=== PATIENT | male | born 1955 | race Caucasian/White ===

== ENCOUNTER 2018-11-24 09:08 | Outpatient (CLI) | payer MEDICARE | END 2018-11-24 09:09 | disposition home or self-care (01) | LOC: C.PAT 09:08 | DX: L72.3 Sebaceous cyst (principal) ==

== ENCOUNTER 2018-11-30 07:53 | Day surgery (SDC) | payer MEDICARE ==
[2018-11-24 09:19] VITALS: BMI 34.5
[2018-11-30] MEDS ORDERED: ceFAZolin 1 gm in NS 2 GM/200 ML BAG IVPB ONE (08:58)
[2018-11-30] MEDS ORDERED: Bupivacaine HCl 0.25% PF (10 ml) Inj ONE (08:58)
[2018-11-30] MEDS ORDERED: Lidocaine/Epinephrine 1% 1:100000 10 ML IJ ONE (08:58)
[2018-11-30] MEDS ORDERED: Midazolam 2 MG/2 ML VIAL ONE ×2 (09:12→09:45)
[2018-11-30] MEDS ORDERED: Propofol 10 mg/ml Inj (20 ML) ONE (09:12)
[2018-11-30] MEDS ORDERED: HYDROmorphone 0.5 mg/0.5 ml ISec IVP PRN (09:43)
--- NOTE | 2018-11-30 10:26 | PCM.SURG1 ---
Surgeon's Initial Post Op Note - Surgeon's Notes Surgeon: Marko Amaya MD Alcohol And Drug Counselor: JACOB Carballo Type of Anesthesia: General Endo Pre-Operative Diagnosis: Infected sebaceous cyst of back 6x5 cm Operative Findings: Infected sebaceous cyst of back 6x5 cm. Infected skin and subcut tissue Post-Operative Diagnosis: Infected sebaceous cyst of back 6x5 cm. Infected skin and subcut tissue Operation Performed: Excision of sebaceous cyst of back 6x5 cm. Excision of redundant Infected skin and subcut tissue 6x2 cm. Layered closure of wound 6x5x3 cm, complex Specimen/Specimens Removed: Infected sebaceous cyst with redundant skin with subcut tissue Estimated Blood Loss: EBL {In ML}: 20 Blood Products Given: N/A Drains Used: No Drains Post-Op Condition: Good Date of Surgery/Procedure: 11/30/18 Time of Surgery/Procedure: 10:26
[2018-11-30 11:36] VITALS: BP 104/60; PULSE 71; RESP 18; TEMP 97; O2SAT 98
--- NOTE | 2018-11-30 16:37 | OP ---
PROCEDURE DATE: 11/30/2018 PREOPERATIVE DIAGNOSES: 1. Sebaceous cyst of right upper back, approximately 6 x 5 cm size. 2. Infected redundant skin and subcutaneous tissue. POSTOPERATIVE DIAGNOSES: 1. Sebaceous cyst of right upper back, approximately 6 x 5 cm size. 2. Infected redundant skin and subcutaneous tissue. PROCEDURES DONE: 1. Excision of the sebaceous cyst of right upper back 6 x 5 cm size. 2. Excision of the infected redundant skin and subcutaneous tissue, 6 x 2 cm size. 3. Layered closure of the wound complex 6 x 5 x 3 cm size. SURGEON: The procedure was done by Win nance MD [employer] SAWYER: JEAN Carballo ANESTHESIA: General endotracheal tube anesthesia. ESTIMATED BLOOD LOSS: Around 20 mL. DRAINS: None. PATHOLOGY: The sebaceous cyst with infected redundant skin was sent to the pathology. COMPLICATIONS: None. INTRAOPERATIVE FINDINGS: The patient had approximately 6 x 5 cm large sebaceous cyst within infected skin and subcutaneous tissue on top of the sebaceous cyst. DESCRIPTION OF PROCEDURE: On intraoperative steps, this 63-year-old male was diagnosed with infected sebaceous cyst of the right upper back, and the patient was consented for the excision, brought to the OR, placed supine on operating table. After induction of the mild sedation, the patient was placed in left lateral position. Local anesthesia was injected. An elliptical incision was made, and upper and lower flap was created. The dissection was carried down deep up to the underlying fascia as well as the muscles and subcutaneous tissue. The superficial redundant skin and subcutaneous tissue was also excised with the cyst, and it was sent off the table for the pathology. Hemostasis was properly achieved. The wound irrigation was done. A multilayer closure was done. The upper flap was sutured to the underlying fascia as well as the muscles. The lower flap was also sutured in similar fashion, and the deep subcu with a 2-0 Vicryl, superficial subcu with 2-0 Vicryl, and another layer of superficial subcu with a 3-0 Vicryl, skin with 4-0 Monocryl, and another layer of the skin with 4-0 nylon, and dry sterile dressing was applied. The patient tolerated the procedure well. Count of instrument gauze was correct. There was no apparent complication. The patient was extubated in OR and sent to the postanesthesia care in stable condition. Win Amaya MD
== END 2018-11-30 12:02 | disposition home or self-care (01) ==
LOC: C.SDS 07:53
PROVIDERS: ATTEND Surgery Surgical Critical Care
DX: L72.3 Sebaceous cyst (principal); L08.9 Local infection of the skin and subcutaneous tissue, unspecified
CPT/HCPCS: 11406; 13101; 82948; 88304; J0690; J2250; J2704; J3010